=== PATIENT | female | born 2000 | race Caucasian/White ===

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

== ENCOUNTER 2021-02-24 09:32 | Observation (INO) ==
[2021-02-24] MEDS ORDERED: ALBUT/IPRATROP 3MG/0.5MG NEB 3 ML VIAL NEB ONE (11:05)
[2021-02-24] MEDS ORDERED: methylPREDNISolone 125 MG/2 ML VIAL IV STA (11:05)
--- NOTE | 2021-02-24 11:10 | Emergency Department Note ---
History of Present Illness General Chief complaint: Respiratory Problems Stated complaint: CHEST PAIN, WHEEZING, DRY COUGH Time Seen by Provider: 02/24/21 10:55 Source: patient Mode of arrival: ambulatory Limitations: no limitations History of Present Illness This patient is a 20-year-old female who has history of asthma comes in after feeling sick since Wednesday she has had a cough she was using Mucinex and ibuprofen her doctor called her and promethazine cough syrup she says she had a nasty cough with wheezing. She said no fever since Wednesday. She says she think she has pneumonia. She takes Singulair as well as Dulera and and had inhaler/nebs. She is not on any current steroids denies lower extremity pain or swelling. Denies she finished her last period yesterday. No fall or trauma. She had 2 - home Covid test and she also is a JJ vaccine in October and had Covid last year so she does not think she likely has Covid. Has been seen in the hospital for her asthma but never been hospitalized Home Medications Medication Instructions Recorded Confirmed Type inhalational spacing device #1 ea 03/28/19 12/06/20 History (POCKET CHAMBER) aluminum chloride 20 % topical 1 applic TOPICAL HS #60 ml 05/20/20 02/24/21 Rx solution (Drysol) albuterol sulfate 2.5 mg INHALATION QID PRN #15 ml 07/02/20 02/24/21 Rx nebulizers (Compact Compressor #1 ea 07/25/20 12/06/20 Rx Nebulizer) montelukast 10 mg tablet 10 mg PO DAILY #90 tab 09/30/20 02/24/21 Rx (Singulair) mometasone-formoterol HFA 100 2 puff INHALATION BID #13 g 11/22/20 02/24/21 Rx mcg-5 mcg/actuation aerosol inhaler (Dulera) famotidine 20 mg tablet (Pepcid) 20 mg PO DAILY #90 tab 12/06/20 02/24/21 Rx norgestimate 0.25 mg-ethinyl 1 tab PO DAILY #28 tab 01/22/21 02/24/21 Rx estradiol 35 mcg tablet (Sprintec (28)) albuterol sulfate 90 mcg/actuation 2 puff INH Q4H PRN 02/24/21 02/24/21 History aerosol inhaler (ProAir HFA) Allergies Allergy/AdvReac Type Severity Reaction Status Date / Time No Known Allergies Allergy Verified 02/24/21 11:49 Past Med/Surg History Medical History (Updated 02/24/21 @ 13:40 by Darrell Wright MD) Chronic gastroesophageal reflux disease WAYNE (generalized anxiety disorder) Intrinsic asthma Surgical History S/P tonsillectomy S/P tympanic tube insertion S/P wisdom tooth extraction Family History Denies family history of Ovarian cancer Prostate cancer Myocardial infarction Breast cancer Colorectal cancer Social History Smoking Status: Never smoker Hx Alcohol Use: No Hx Substance Use: No Preferred Language: Tajik Communication Ability: Effective Visual Impairment: No Limitations Hearing Ability: Normal marital status: Single Current Living Situation: Other Current Living Situation Comment: Living with roommates current occupational status: employed and student current occupation: [employer] Feels Safe at Home: Yes Childhood Exposure to Second-Hand Smoke: Yes Dental Care, Regularly: Yes Physical Activity Frequency: 1-2 Times per Week Seatbelt Use: always Sunscreen Use: No Review of Systems A total of 10 systems reviewed and were otherwise negative Physical Exam Vital Signs Vital Signs - 24 hr 02/24/21 09:37 02/24/21 11:10 02/24/21 11:20 Temperature 36.7 C Temperature Source Temporal Artery Scan Pulse Rate 117 H 103 H Pulse Rate [Left] 97 H Pulse Rate from SpO2 Sensor Pulse Rhythm Regular Pulse Rhythm [Left] Regular Pulse Strength Normal Pulse Strength [Left] Normal Respiratory Rate 20 17 26 H Respiratory Effort / Characteristics Non-Labored Spontaneous Non-Labored Respiratory Depth Normal Normal Respiratory Pattern Regular Regular Blood Pressure 159/106 H Blood Pressure [Left Arm] 144/79 H Blood Pressure Mean 123 Blood Pressure Mean [Left Arm] 100 Blood Pressure Position Sitting Blood Pressure Position [Left Arm] Lying Pulse Oximetry 93 100 95 Oxygen Delivery Method Room Air Room Air Room Air Sepsis Recent Fever Within 48 Hours No Sepsis New/Unexplained Change in Mental Status N/A Sepsis Action Taken by Nursing No Action Required 02/24/21 11:30 02/24/21 11:45 02/24/21 11:53 Temperature Temperature Source Pulse Rate 87 78 Pulse Rate [Left] 70 Pulse Rate from SpO2 Sensor 85 78 Pulse Rhythm Pulse Rhythm [Left] Pulse Strength Pulse Strength [Left] Respiratory Rate 34 H 36 H 20 Respiratory Effort / Characteristics Spontaneous Respiratory Depth Respiratory Pattern Blood Pressure 135/86 131/94 Blood Pressure [Left Arm] Blood Pressure Mean 102 106 Blood Pressure Mean [Left Arm] Blood Pressure Position Blood Pressure Position [Left Arm] Pulse Oximetry 93 97 97 Oxygen Delivery Method Room Air Room Air Room Air Sepsis Recent Fever Within 48 Hours Sepsis New/Unexplained Change in Mental Status Sepsis Action Taken by Nursing 02/24/21 12:00 02/24/21 12:15 02/24/21 12:30 Temperature Temperature Source Pulse Rate 85 88 87 Pulse Rate [Left] Pulse Rate from SpO2 Sensor 85 89 88 Pulse Rhythm Pulse Rhythm [Left] Pulse Strength Pulse Strength [Left] Respiratory Rate 26 H 20 25 H Respiratory Effort / Characteristics Respiratory Depth Respiratory Pattern Blood Pressure 142/78 H 145/72 H 104/73 Blood Pressure [Left Arm] Blood Pressure Mean 99 96 83 Blood Pressure Mean [Left Arm] Blood Pressure Position Blood Pressure Position [Left Arm] Pulse Oximetry 98 98 98 Oxygen Delivery Method Room Air Room Air Room Air Sepsis Recent Fever Within 48 Hours Sepsis New/Unexplained Change in Mental Status Sepsis Action Taken by Nursing 02/24/21 12:45 02/24/21 13:00 02/24/21 13:15 Temperature Temperature Source Pulse Rate 96 H 112 H 99 H Pulse Rate [Left] Pulse Rate from SpO2 Sensor 100 H 113 H 104 H Pulse Rhythm Pulse Rhythm [Left] Pulse Strength Pulse Strength [Left] Respiratory Rate 21 21 24 Respiratory Effort / Characteristics Respiratory Depth Respiratory Pattern Blood Pressure 127/81 141/80 H 134/75 Blood Pressure [Left Arm] Blood Pressure Mean 96 100 94 Blood Pressure Mean [Left Arm] Blood Pressure Position Blood Pressure Position [Left Arm] Pulse Oximetry 98 97 96 Oxygen Delivery Method Room Air Room Air Room Air Sepsis Recent Fever Within 48 Hours Sepsis New/Unexplained Change in Mental Status Sepsis Action Taken by Nursing General: Well developed well nourished young female who has a dry intermittent cough in no acute distress, breathing comfortably on room air. Normal speech HEENT: Normal cephalic atraumatic. Pupils are equal round and reactive to light. Extraocular movements are intact. Oropharynx is pink with moist mucous membranes. No swelling of the mouth lips or tongue. Neck: Supple with a midline trachea. No meningeal signs or stiffness, no JVD or bruits. No Stridor. Chest: She has mild increased work of breathing and diffuse wheezes bilaterally with rhonchi as well. No retractions. Heart: Regular rate and rhythm without murmurs or gallops. Abdomen: Soft nontender, nondistended without rebound guarding or rigidity. Extremities: No cyanosis clubbing or edema. No calf tenderness or assymetry Spine/Back. Non tender to palpation. No CVA tenderness Skin: Good turgor without rashes. Neurologic exam: Cranial nerves two through 12 are intact. Motor and sensation are intact and symmetrical throughout. Course Administered Medications Discontinued Medications Albuterol (Albut/Ipratrop 3mg/0.5mg Neb 3 Ml Vial) 12 ml NEB ONE ONE Stop: 02/24/21 11:06 Last Admin: 02/24/21 11:43 Dose: 12 ml Documented by: [id number] Methylprednisolone (Methylprednisolone 125 Mg/2 Ml Vial) 125 mg IV NOW STA Stop: 02/24/21 11:06 Last Admin: 02/24/21 11:23 Dose: 125 mg Documented by: [id number] Medical Decision Making Differential Diagnosis Asthma exacerbation, bronchitis, pneumonia, Covid, PE, electrolyte or metabolic abnormality Medical Records Attestation: I reviewed the patient's medical records. Home Medications Current Medication List: was personally reviewed by me Laboratory Data Attestation: I reviewed the patient's lab results. Result diagrams: 02/24/21 11:21 02/24/21 11:21 Lab Results 02/24/21 02/24/21 02/24/21 Range/Units 11:21 11:21 11:21 WBC 7.53 (4.8-10.8) K/uL RBC 4.55 (4.2-5.4) M/uL Hgb 13.9 (12.0-16.0) g/dL Hct 40.1 (37-47) % MCV 88.1 (80-100) fL MCH 30.5 (25-34) pg MCHC 34.7 (32-36) g/dL RDW Std Deviation 41.0 (36.4-46.3) fL RDW Coeff of Ruthann 12.7 (11.5-14.5) % Plt Count 243 (130-400) K/uL MPV 10.9 H (7.4-10.4) fL Immature Gran % (Auto) 0.3 % Neut % (Auto) 54.6 % Lymph % (Auto) 29.3 % Letcher % (Auto) 10.8 % Eos % (Auto) 4.5 % Baso % (Auto) 0.5 % Neut # (Auto) 4.11 (1.4-6.5) K/uL Lymph # (Auto) 2.21 (1.2-3.4) K/uL Letcher # (Auto) 0.81 H (0.11-0.59) K/uL Eos # (Auto) 0.34 (0-0.5) K/uL Baso # (Auto) 0.04 (0-0.2) K/uL Immature Gran # (Auto) 0.02 (0.00-0.02) K/uL APTT 27.6 (21.0-31.0) Seconds PTT Ratio 1.0 D-Dimer 250 (0-500) ug/L FEU Sodium 138 (136-145) mmol/L Potassium 3.5 (3.5-5.1) mmol/L Chloride 105 (98-107) mmol/L Carbon Dioxide 25 (21-32) mmol/L Anion Gap 8.0 (3-11) BUN 5 L (7-18) mg/dl Creatinine 0.85 (0.6-1.2) mg/dl Est Cr Clr Drug Dosing 89.4 ml/min Est GFR ( Amer) 113.5 ml/min Est GFR (Non-Af Amer) 97.9 ml/min BUN/Creatinine Ratio 5.9 L (10-20) Glucose 94 (70-99) mg/dl Calcium 8.4 L (8.5-10.1) mg/dl Total Bilirubin 0.4 (0.2-1) mg/dl AST 15 (15-37) U/L ALT 16 (12-78) U/L Alkaline Phosphatase 62 (45-117) U/L Troponin I < 0.015 (0-0.045) ng/ml Total Protein 8.1 (6.4-8.2) gm/dl Albumin 3.5 (3.4-5.0) gm/dl Globulin 4.6 H (2.5-4.0) gm/dl Albumin/Globulin Ratio 0.8 L (0.9-2) Lipase 55 L (73-393) U/L HCG, Qual (Negative) COVID-19 Eval Order SARS-CoV-2 (PCR) (Negative) 02/24/21 02/24/21 02/24/21 Range/Units 11:21 11:23 11:23 WBC (4.8-10.8) K/uL RBC (4.2-5.4) M/uL Hgb (12.0-16.0) g/dL Hct (37-47) % MCV (80-100) fL MCH (25-34) pg MCHC (32-36) g/dL RDW Std Deviation (36.4-46.3) fL RDW Coeff of Ruthann (11.5-14.5) % Plt Count (130-400) K/uL MPV (7.4-10.4) fL Immature Gran % (Auto) % Neut % (Auto) % Lymph % (Auto) % Letcher % (Auto) % Eos % (Auto) % Baso % (Auto) % Neut # (Auto) (1.4-6.5) K/uL Lymph # (Auto) (1.2-3.4) K/uL Letcher # (Auto) (0.11-0.59) K/uL Eos # (Auto) (0-0.5) K/uL Baso # (Auto) (0-0.2) K/uL Immature Gran # (Auto) (0.00-0.02) K/uL APTT (21.0-31.0) Seconds PTT Ratio D-Dimer (0-500) ug/L FEU Sodium (136-145) mmol/L Potassium (3.5-5.1) mmol/L Chloride (98-107) mmol/L Carbon Dioxide (21-32) mmol/L Anion Gap (3-11) BUN (7-18) mg/dl Creatinine (0.6-1.2) mg/dl Est Cr Clr Drug Dosing ml/min Est GFR ( Amer) ml/min Est GFR (Non-Af Amer) ml/min BUN/Creatinine Ratio (10-20) Glucose (70-99) mg/dl Calcium (8.5-10.1) mg/dl Total Bilirubin (0.2-1) mg/dl AST (15-37) U/L ALT (12-78) U/L Alkaline Phosphatase (45-117) U/L Troponin I (0-0.045) ng/ml Total Protein (6.4-8.2) gm/dl Albumin (3.4-5.0) gm/dl Globulin (2.5-4.0) gm/dl Albumin/Globulin Ratio (0.9-2) Lipase (73-393) U/L HCG, Qual Negative (Negative) COVID-19 Eval Order Covid19 at [facility] SARS-CoV-2 (PCR) NEGATIVE (Negative) Imaging Data Attestation: I personally reviewed and interpreted this imaging study as follows: My Impression: Chest x-ray No acute infiltrate, failure, pneumothorax seen. Radiologist's Impression: Chest X-Ray 02/24/21 11:05 XR chest 1V portable HISTORY: Atypical Chest Pain COMPARISON: Chest 08/22/2020. FINDINGS: The lungs are clear. Cardiac silhouette is normal in size. No pleural effusions. No pneumothorax. IMPRESSION: No acute process. ACT 112: Negative or not required by law. Electronically signed by: Nirav Sanders M.D. 02/24/2021 11:52 AM ECG Data Attestation: I personally reviewed and interpreted this ECG as follows: Indication: + SOB/dyspnea Rate (beats per minute): 88 Rhythm: + normal sinus ECG Intervals/blocks: + Normal QRS, + Normal QT and + Normal PA ECG [place]: + Normal ECG ST segments: + Normal ST segments ECG Findings: no PACs or no PVCs Comparison ECG Date: no prior available MDM Narrative This patient comes in as described above. She was placed on a cardiac technologist in room C 10. She is a cough and shortness of breath. She is an asthmatic and she sounds very wheezy and junky. Her O2 sat is 93%. She does not appear to be in significant distress besides coughing. IV access was established. She was given Solu-Medrol 125 mg IV. she was given a continuous albuterol Atrovent neb. She was Covid tested here as well blood work was obtained as well as an EKG she was reassessed frequently. Her chest x-ray was clear does not suggest congestive heart failure pneumonia or pneumothorax. Covid testing here was negative and I think Covid's unlikely given the that she has had 2 other negative test as well as the vaccine and a history of Covid. She has no serum white count or fever to suggest sepsis. Her D-dimer is within normal limits and a low pretest probability study makes PE highly unlikely. EKG does not suggest acute coronary syndrome or arrhythmia. Troponin is negative. After the hour- long neb she says she still does not feel well I listen to her lungs she still sounds very wheezy although she is not hypoxemic I do think she needs to be admitted/observe for further treatment and evaluation. Have consulted Dr. Alfonso to see her in ER for these measures. Continuous cardiac monitoring: Due to her shortness of breath, an order was placed in EMR for continuous cardiac monitoring. Upon my interpretation she was noted to be in normal sinus rhythm with a rate of 99 Impression & Plan Asthma exacerbation, SOB (shortness of breath), Lab test negative for COVID-19 virus, Bronchitis, Not currently Discharge Plan Visit Data Chief Complaint: Respiratory Problems Stated Complaint: CHEST PAIN, WHEEZING, DRY COUGH ED Provider: Darrell Wright Discharge Problem: Asthma exacerbation, SOB (shortness of breath), Lab test negative for COVID-19 virus, Bronchitis, Not currently Discharge Instructions Activity Restrictions/Additional Instructions: Rest Drink plenty of fluids Return if: Worsening of symptoms, increasing shortness of breath, fever chills, any new problems or concerns Use prednisone 50 mg a day for the next 4 days Continue inhalers/nebulizer Use azithromycin Z-Esteban as directedantibiotic Forms Stand Alone Forms: My [facility] [employer] Prescriptions Prescriptions: No Action norgestimate-ethinyl estradiol [Sprintec (28)] 0.25-35 mg-mcg tablet 1 tab PO DAILY Qty: 28 RF: 5 aluminum chloride [Drysol] 20 % solution 1 applic topical HS Qty: 60 RF: 0 Dulera 100-5 mcg/actuation HFA aerosol inhaler 2 puff inhalation BID Qty: 13 RF: 5 (DME) Compact Compressor Nebulizer Misc See Dose Instructions .ROUTE .MEDSUPPLY Qty: 1 RF: 0 montelukast [Singulair] 10 mg tablet 10 mg PO DAILY Qty: 90 RF: 3 (DME) POCKET CHAMBER spacer See Dose Instructions .ROUTE .MEDSUPPLY Qty: 1 RF: 0 albuterol sulfate 2.5 mg /3 mL (0.083 %) solution for nebulization 2.5 mg inhalation QID PRN (Reason: shortness of breath or wheezing) Qty: 15 RF: 1 famotidine [Pepcid] 20 mg tablet 20 mg PO DAILY Qty: 90 RF: 3 albuterol sulfate [ProAir HFA] 90 mcg/actuation HFA aerosol inhaler 2 puff INH Q4H PRN (Reason: Shortness Of Breath) RF: 0 Referrals Referrals: Corwin Mancera III, CRNP [Primary Care Provider] -
[2021-02-24 11:46] LABS: Basophils # (auto) 0.04 K/uL (0-0.2); Basophils % (auto) 0.5 %; Eosinophils # (auto) 0.34 K/uL (0-0.5); Eosinophils % (auto) 4.5 %; Hematocrit (blood only) 40.1 % (37-47); Hemoglobin 13.9 g/dL (12.0-16.0); Immature Granulocytes # (auto) 0.02 K/uL (0.00-0.02); Immature Granulocytes % (auto) 0.3 %; Lymphocytes # (auto) 2.21 K/uL (1.2-3.4); Lymphocytes % (auto) 29.3 %; Mean Corpuscular Hemoglobin 30.5 pg (25-34); Mean Corpuscular Hgb Conc 34.7 g/dL (32-36); Mean Corpuscular Volume 88.1 fL (80-100); Mean Platelet Volume 10.9 fL (7.4-10.4); Monocytes # (auto) 0.81 K/uL (0.11-0.59); Monocytes % (auto) 10.8 %; Neutrophils # (auto) 4.11 K/uL (1.4-6.5); Neutrophils % (auto) 54.6 %; Platelet Count 243 K/uL (130-400); RDW Coefficient of Variation 12.7 % (11.5-14.5); Red Blood Count 4.55 M/uL (4.2-5.4); White Blood Count 7.53 K/uL (4.8-10.8)
--- NOTE | 2021-02-24 11:54 | XRay Report ---
XR chest 1V portable HISTORY: Atypical Chest Pain COMPARISON: Chest 08/22/2020. FINDINGS: The lungs are clear. Cardiac silhouette is normal in size. No pleural effusions. No pneumot horax. IMPRESSION: No acute process. ACT 112: Negative or not required by law. Electronically signed by: Nirav Sanders M.D. 02/24/2021 11:52 AM
[2021-02-24 11:58] LABS: D Dimer 250 ug/L FEU (0-500); Partial Thromboplastin Time 27.6 Seconds (21.0-31.0)
[2021-02-24 12:03] LABS: Alanine Aminotransferase 16 U/L (12-78); Albumin Level 3.5 gm/dl (3.4-5.0); Aspartate Aminotransferase 15 U/L (15-37); BUN Creatinine Ratio 5.9 (10-20); Blood Urea Nitrogen 5 mg/dl (7-18); Calcium 8.4 mg/dl (8.5-10.1); Carbon Dioxide 25 mmol/L (21-32); Chloride 105 mmol/L (98-107); Creatinine Clr Calc Pharmacy 89.4 ml/min; Est GFR (African American) 113.5 ml/min; Est GFR (Non-African American) 97.9 ml/min; Glucose 94 mg/dl (70-99); Lipase 55 U/L (73-393); Potassium 3.5 mmol/L (3.5-5.1); Sodium 138 mmol/L (136-145)
[2021-02-24 12:08] LABS: Albumin Globulin Ratio 0.8 (0.9-2); Alkaline Phosphatase 62 U/L (45-117); Bilirubin,Total 0.4 mg/dl (0.2-1); Globulin 4.6 gm/dl (2.5-4.0); Total Protein 8.1 gm/dl (6.4-8.2); Troponin I < 0.015 ng/ml (0-0.045)
[2021-02-24 12:37] LABS: Pregnancy Test, Serum Negative (Negative)
--- NOTE | 2021-02-24 14:38 | History & Physical Report ---
Date of Service February 24, 2021 Assessment & Plan (1) Asthma exacerbation: Plan: Placed in monitored observation Continue every 4 albuterol neb treatments as needed Patient was given a loading dose of Solu-Medrol, will continue at 40 mg every 12 hours. Hopefully patient can tolerate a rapid wean and plan to change manager to oral prednisone the next 24 hours I will hold antibiotics for now We will continue other medications as per outpatient including Singulair Can hold Dulera for now, should restart at discharge History of Present Illness Chief Complaint: Wheeze Primary Care Provider: Corwin Mancera, SURJIT, BRITT This is a 20-year-old female with past medical history of asthma presents today complaining of wheezing. Patient is pleasant good historian. Patient states that over the past few days she has had worsening shortness of breath along with wheezing. This is typical of her asthma symptoms and she t ypically does well with a home nebulizer. However the symptoms worsen. She did call her family physician and was given promethazine which did not help. She came to the emergency room had a long nebulizer which she felt was somewhat more effective. Patient has never had to rule be admitted for asthma exacerbation in the past. At time of evaluation she did appear to be comfortable although had a pronounced audible wheeze. She was on room air and was in no acute distress. Allergies Allergy/AdvReac Type Severity Reaction Status Date / Time No Known Allergies Allergy Verified 02/24/21 11:49 Home Medications Medication Instructions Recorded Confirmed Type inhalational spacing device #1 ea 03/28/19 12/06/20 History (POCKET CHAMBER) aluminum chloride 20 % topical 1 applic TOPICAL HS #60 ml 05/20/20 02/24/21 Rx solution (Drysol) albuterol sulfate 2.5 mg INHALATION QID PRN #15 ml 07/02/20 02/24/21 Rx nebulizers (Compact Compressor #1 ea 07/25/20 12/06/20 Rx Nebulizer) montelukast 10 mg tablet 10 mg PO DAILY #90 tab 09/30/20 02/24/21 Rx (Singulair) mometasone-formoterol HFA 100 2 puff INHALATION BID #13 g 11/22/20 02/24/21 Rx mcg-5 mcg/actuation aerosol inhaler (Dulera) famotidine 20 mg tablet (Pepcid) 20 mg PO DAILY #90 tab 12/06/20 02/24/21 Rx norgestimate 0.25 mg-ethinyl 1 tab PO DAILY #28 tab 01/22/21 02/24/21 Rx estradiol 35 mcg tablet (Sprintec (28)) albuterol sulfate 90 mcg/actuation 2 puff INH Q4H PRN 02/24/21 02/24/21 History aerosol inhaler (ProAir HFA) Past Med/Surg History Medical History Chronic gastroesophageal reflux disease WAYNE (generalized anxiety disorder) Intrinsic asthma Surgical History S/P tonsillectomy S/P tympanic tube insertion S/P wisdom tooth extraction Family History Denies family history of Ovarian cancer Prostate cancer Myocardial infarction Breast cancer Colorectal cancer Social History Smoking Status: Never smoker Hx Alcohol Use: No Hx Substance Use: No Preferred Language: Greek Communication Ability: Effective Visual Impairment: No Limitations Hearing Ability: Normal marital status: Single Current Living Situation: Other Current Living Situation Comment: Living with roommates current occupational status: employed and student current occupation: [employer] Feels Safe at Home: Yes Childhood Exposure to Second-Hand Smoke: Yes Dental Care, Regularly: Yes Physical Activity Frequency: 1-2 Times per Week Seatbelt Use: always Sunscreen Use: No Review of Systems Constitutional: no fever, no chills, no weakness, no weight loss and no weight gain Eyes: as per Subjective / HPI Respiratory: + cough, + dyspnea, + dyspnea on exertion and + wheezing; no chest congestion and no sputum production Cardiovascular: no chest pain, no orthopnea, no palpitations, no lightheadedness and no edema Gastrointestinal: no abdominal pain, no nausea, no vomiting, no constipation and no diarrhea/loose stools Genitourinary: no dysuria, no difficulty urinating, no urinary frequency, no urinary hesitancy, no urinary urgency and no flank pain Musculoskeletal: no back pain, no neck pain, no joint pain, no stiffness and no myalgia Integumentary: no rash Neurologic: no gait abnormality, no unsteadiness, no falls and no generalized weakness Physical Exam Constitutional: cooperative; no acute distress Neck: trachea midline, no thyromegaly Respiratory: normal respiratory effort Auscultation: + wheezes and + bronchial breath sounds; no crackles, no rales and no rhonchi Cardiovascular: Rate/Rhythm: regular rate and regular rhythm Heart Sounds: normal S1, normal S2 and + murmur Gastrointestinal (Abdomen): Inspection/Auscultation: abdomen normal to inspection Percussion/Palpation: abdomen soft; abdomen nontender, no guarding, abdomen not rigid and no hepatosplenomegaly Skin: no rashes, warm and dry Results & Data Results & Data ([facility]) Vital Signs (Past 12 Hours) Vital Signs Temp Pulse Pulse Resp BP BP Pulse Ox 02/24/21 13:15 99 H 24 134/75 96 02/24/21 13:00 112 H 21 141/80 H 97 02/24/21 12:45 96 H 21 127/81 98 02/24/21 12:30 87 25 H 104/73 98 02/24/21 12:15 88 20 145/72 H 98 02/24/21 12:00 85 26 H 142/78 H 98 02/24/21 11:53 70 20 97 02/24/21 11:45 78 36 H 131/94 97 02/24/21 11:30 87 34 H 135/86 93 02/24/21 11:20 103 H 26 H 95 02/24/21 11:10 97 H 17 144/79 H 100 02/24/21 09:37 36.7 C 117 H 20 159/106 H 93 Laboratory Results Laboratory Results WBC 7.53 K/uL (4.8-10.8) 02/24/21 11:21 RBC 4.55 M/uL (4.2-5.4) 02/24/21 11:21 Hgb 13.9 g/dL (12.0-16.0) 02/24/21 11:21 Hct 40.1 % (37-47) 02/24/21 11:21 MCV 88.1 fL (80-100) 02/24/21 11:21 MCH 30.5 pg (25-34) 02/24/21 11:21 MCHC 34.7 g/dL (32-36) 02/24/21 11: RDW Std Deviation 41.0 fL (36.4-46.3) 02/24/21 11: RDW Coeff of Ruthann 12.7 % (11.5-14.5) 02/24/21 11:21 Plt Count 243 K/uL (130-400) 02/24/21 11:21 MPV 10.9 fL (7.4-10.4) H 02/24/21 11:21 Immature Gran % (Auto) 0.3 % 02/24/21 11:21 Neut % (Auto) 54.6 % 02/24/21 11:21 Lymph % (Auto) 29.3 % 02/24/21 11:21 [place] % (Auto) 10.8 % 02/24/21 11:21 Eos % (Auto) 4.5 % 02/24/21 11:21 Baso % (Auto) 0.5 % 02/24/21 11:21 Neut # (Auto) 4.11 K/uL (1.4-6.5) 02/24/21 11: Lymph # (Auto) 2.21 K/uL (1.2-3.4) 02/24/21 11:21 [place] # (Auto) 0.81 K/uL (0.11-0.59) H 02/24/21 11:21 Eos # (Auto) 0.34 K/uL (0-0.5) 02/24/21 11:21 Baso # (Auto) 0.04 K/uL (0-0.2) 02/24/21 11: Immature Gran # (Auto) 0.02 K/uL (0.00-0.02) 02/24/21 11:21 APTT 27.6 Seconds (21.0-31.0) 02/24/21 11: PTT Ratio 1.0 02/24/21 11:21 D-Dimer 250 ug/L FEU (0-500) 02/24/21 11:21 Sodium 138 mmol/L (136-145) 02/24/21 11:21 Potassium 3.5 mmol/L (3.5-5.1) 02/24/21 11:21 Chloride 105 mmol/L (98-107) 02/24/21 11:21 Carbon Dioxide 25 mmol/L (21-32) 02/24/21 11:21 Anion Gap 8.0 (3-11) 02/24/21 11:21 BUN 5 mg/dl (7-18) L 02/24/21 11:21 Creatinine 0.85 mg/dl (0.6-1.2) 02/24/21 11:21 Est Cr Clr Drug Dosing 89.4 ml/min 02/24/21 11:21 Est GFR ( Amer) 113.5 ml/min 02/24/21 11:21 Est GFR (Non-Af Amer) 97.9 ml/min 02/24/21 11:21 BUN/Creatinine Ratio 5.9 (10-20) L 02/24/21 11:21 Glucose 94 mg/dl (70-99) 02/24/21 11:21 Calcium 8.4 mg/dl (8.5-10.1) L 02/24/21 11:21 Total Bilirubin 0.4 mg/dl (0.2-1) 02/24/21 11:21 AST 15 U/L (15-37) 02/24/21 11:21 ALT 16 U/L (12-78) 02/24/21 11:21 Alkaline Phosphatase 62 U/L (45-117) 02/24/21 11:21 Troponin I < 0.015 ng/ml (0-0.045) 02/24/21 11:21 Total Protein 8.1 gm/dl (6.4-8.2) 02/24/21 11:21 Albumin 3.5 gm/dl (3.4-5.0) 02/24/21 11:21 Globulin 4.6 gm/dl (2.5-4.0) H 02/24/21 11:21 Albumin/Globulin Ratio 0.8 (0.9-2) L 02/24/21 11:21 Lipase 55 U/L (73-393) L 02/24/21 11:21 HCG, Qual Negative (Negative) 02/24/21 11:21 COVID-19 Eval Order Covid19 at [facility] 02/24/21 11:23 SARS-CoV-2 (PCR) NEGATIVE (Negative) 02/24/21 11:23 Impressions Chest X-Ray 02/24/21 11:05 XR chest 1V portable HISTORY: Atypical Chest Pain COMPARISON: Chest 08/22/2020. FINDINGS: The lungs are clear. Cardiac silhouette is normal in size. No pleural effusions. No pneumothorax. IMPRESSION: No acute process. ACT 112: Negative or not required by law. Electronically signed by: Nirav Sanders M.D. 02/24/2021 11:52 AM PG Care Time/CCT Total # of Minutes Spent Total Time Spent with Patient: Total time spent is greater than 50% in coordination of care (as documented) at patient's floor/unit and/or counseling patient: Coding Level of Care Code INT OBSERVATION CARE 70M LVL 3 Diagnoses Asthma exacerbation J45.901 Asthma persistence: unspecified Asthma severity: moderate (1) Asthma exacerbation Asthma persistence: unspecified Asthma severity: moderate Qualified Code(s): J45.901 - Unspecified asthma with (acute) exacerbation
[2021-02-24] MEDS ORDERED: ONDANSETRON INJ 2 MG/ML 2 ML VIAL IV PRN (15:48)
--- NOTE | 2021-02-24 16:04 | Electrocardiogram Report ---
Test Reason : Blood Pressure : / mmHG Vent. Rate : 088 BPM Atrial Rate : 088 BPM P-R Int : 132 ms QRS Dur : 070 ms QT Int : 382 ms P-R-T Axes : 067 069 037 degrees QTc Int : 462 ms Poor data quality, interpretation may be adversely affected Normal sinus rhythm with sinus arrhythmia Normal ECG No previous ECGs available Confirmed by John Laguna ([id number]) on 02/24/2021 4:03:41 PM Referred By: Corwin Mancera Confirmed By:John Laguna
[2021-02-24] MEDS: ACETAMINOPHEN 325 MG TAB PO PRN (19:29)
[2021-02-24] MEDS: methylPREDNISolone 40 MG in SYRINGE 0 ML IV SCH (22:36)
[2021-02-24] MEDS: ALBUTEROL 0.083% NEBU SOLN 3 ML VIAL INH PRN (22:41)
[2021-02-25] MEDS: ACETAMINOPHEN 325 MG TAB PO PRN ×2 (04:51→17:45)
[2021-02-25] MEDS: ALBUTEROL 0.083% NEBU SOLN 3 ML VIAL INH PRN ×2 (04:56→07:44)
[2021-02-25 07:43] LABS: Basophils # (auto) 0.02 K/uL (0-0.2); Basophils % (auto) 0.2 %; Hematocrit (blood only) 39.2 % (37-47); Hemoglobin 13.5 g/dL (12.0-16.0); Immature Granulocytes # (auto) 0.02 K/uL (0.00-0.02); Immature Granulocytes % (auto) 0.2 %; Lymphocytes # (auto) 1.34 K/uL (1.2-3.4); Lymphocytes % (auto) 13.6 %; Mean Corpuscular Hemoglobin 30.3 pg (25-34); Mean Corpuscular Hgb Conc 34.4 g/dL (32-36); Mean Corpuscular Volume 88.1 fL (80-100); Mean Platelet Volume 11.2 fL (7.4-10.4); Monocytes # (auto) 0.99 K/uL (0.11-0.59); Monocytes % (auto) 10.1 %; Neutrophils # (auto) 7.46 K/uL (1.4-6.5); Neutrophils % (auto) 75.9 %; Platelet Count 264 K/uL (130-400); RDW Coefficient of Variation 12.7 % (11.5-14.5); RDW Standard Deviation 40.7 fL (36.4-46.3); Red Blood Count 4.45 M/uL (4.2-5.4); White Blood Count 9.83 K/uL (4.8-10.8)
[2021-02-25 08:06] LABS: BUN Creatinine Ratio 9.8 (10-20); Calcium 9.1 mg/dl (8.5-10.1); Creatinine Clr Calc Pharmacy 102.5 ml/min; Est GFR (African American) 132.1 ml/min; Est GFR (Non-African American) 113.9 ml/min; Magnesium 2.3 mg/dl (1.8-2.4); Potassium 3.8 mmol/L (3.5-5.1)
[2021-02-25] MEDS: MONTELUKAST SODIUM 10 MG TABLET PO SCH (08:36)
[2021-02-25] MEDS: FAMOTIDINE 20 MG TAB PO SCH (08:36)
[2021-02-25] MEDS: ALBUTEROL 0.083% NEBU SOLN 3 ML VIAL INH SCH ×4 (11:02→22:29)
[2021-02-25] MEDS: methylPREDNISolone 40 MG in SYRINGE 0 ML IV SCH ×2 (11:39→22:51)
--- NOTE | 2021-02-25 18:43 | Hospitalist Progress Note ---
Date of Service February 25, 2021 Assessment & Plan (1) Asthma exacerbation: Plan: Most likely viral bronchitis type etiology for exacerbation -Appears to be improving, but still fairly symptomatic -Continue current care with nebs [id number] and IV steroids -Continue supportive care and serial exams -Hopefully home soon Admission and Anticipated Discharge Date Admission Date: February 24, 2021 Subjective Seen twice today. Breathing better than yesterday, but still not well. A decent amount of dyspnea when she walks. 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 Ongoing cough and dyspnea. Definitely better than yesterday though. Review of Systems Review of Systems: All systems reviewed & are unremarkable except as noted in HPI & below Physical Exam Physical Exam: In general she is awake and alert fatigued but no distress. HEENT normocephalic atraumatic mucous membranes moist. Lungs show overall good air entry, but very coarse breath sounds throughout diffusely, no wheezing no accessory muscle use. Skin shows no rashes no pallor or icterus. Neuro without focal deficits. Results & Data Results & Data ([facility]) Vital Signs (Past 12 Hours) Vital Signs Temp Pulse Resp BP Pulse Ox 02/25/21 18:16 20 97 02/25/21 16:32 97.7 F 80 18 118/72 94 02/25/21 14:56 70 18 99 02/25/21 11:03 70 20 99 02/25/21 08:03 98.1 F 69 18 122/73 99 02/25/21 07:46 69 20 99 PG Care Time/CCT Total # of Minutes Spent Total Time Spent with Patient: Total time spent is greater than 50% in coordination of care (as documented) at patient's floor/unit and/or counseling patient: Coding Level of Care Code 91964 Subseq Obs Care Lvl 3 Diagnoses Asthma exacerbation J45.901 Asthma persistence: unspecified Asthma severity: moderate (1) Asthma exacerbation Asthma persistence: unspecified Asthma severity: moderate Qualified Code(s): J45.901 - Unspecified asthma with (acute) exacerbation
[2021-02-26] MEDS: ALBUTEROL 0.083% NEBU SOLN 3 ML VIAL INH SCH ×3 (04:03→10:55)
[2021-02-26] MEDS: MONTELUKAST SODIUM 10 MG TABLET PO SCH (09:07)
[2021-02-26] MEDS: FAMOTIDINE 20 MG TAB PO SCH (09:08)
[2021-02-26] MEDS: methylPREDNISolone 40 MG in SYRINGE 0 ML IV SCH (10:51)
[2021-02-26] MEDS ORDERED: AZITHROMYCIN 250 MG TAB PO ONE (12:30)
--- NOTE | 2021-02-26 19:02 | Discharge Summary ---
Date of Service February 26, 2021 Admission HPI Per Admitting Provider This is a 20-year-old female with past medical history of asthma presents today complaining of wheezing. Patient is pleasant good historian. Patient states that over the past few days she has had worsening shortness of breath along with wheezing. This is typical of her asthma symptoms and she typically does well with a home nebulizer. However the symptoms worsen. She did call her family physician and was given promethazine which did not help. She came to the emergency room had a long nebulizer which she felt was somewhat more effective. Patient has never had to rule be admitted for asthma exacerbation in the past. At time of evaluation she did appear to be comfortable although had a pronounced audible wheeze. She was on room air and was in no acute distress. Principal Diagnosis Asthma exacerbation Discharge Exam In general she is awake and alert pleasant no distress. HEENT normocephalic atraumatic mucous membranes moist. Lungs show coarse breath sounds throughout with rather mucousy rhonchi, but much better air entry than yesterday, no accessory muscle use no conversational dyspnea, occasional dry cough. Neuro shows no focal deficits, skin without rashes, pallor, icterus. Discharge Data Allergies Allergy/AdvReac Type Severity Reaction Status Date / Time No Known Allergies Allergy Verified 02/24/21 11:49 Consultations 02/24/21 13:13 ED Decision to Admit Stat Hospital Course (1) Asthma exacerbation: Most likely bronchitis type etiology for exacerbation -Appears to be improving, but still fairly symptomaticsafe/stable for home, but will add azithromycin to cover for atypicals given this being her worst exacerbation it seems she is ever had, and a bit slow to turn around. Chest x- ray did not show pneumonia, and her lung exam shows symmetric findings. -Zithromax, prednisone taper, continue Dulera, albuterol as needed -Would refrain from work for at least the next week or so given that she is exposed to the public quite a bit. Total Time Total Time Spent Total Time Spent (In Minutes): <30 Discharge Plan Discharge Items Patient Disposition: Home - Self-Care Reason For Visit: ASTHMA EXAC Discharge Diagnosis: asthma exacerbation Activity: Resume your previous activity Lifting: None Non-emergency contact: Primary Care Provider and [employer]age [employer] Investigator Call non-emergency contact if: you have any medication questions, your symptoms worsen and you have a fever Follow-up/Referrals: Corwin Mancera III, CRNP [Primary Care Provider] - 03/06/21 9:20 am Diet: Regular Addtl Attending Provider Instructions: asthma exacerbation -as we discussed, most likely the reason for your asthma flare was an infectious bronchitis-type mechanism. most likely this came about because of all of the exposure of people at work, especially because we'll frequently see an uptick in respiratory infections when everyone first comes back to campus, and brings all their different viruses/etc with them -while most of these respiratory infections are viral, since yours asthma flare was definitely worse than you've ever had, and was a bit stubborn to get to turn around, we've added zithromax (azithromycin) to cover for what are called atypical bacteria (think "bacterial bronchitis) (you'll just need to take a 250mg pill for the next four days - starting tomorrow - 02/27) -fortunately it does appear that you're turning the corner - and generally speaking, once someone with an asthma flare starts to get better, they rarely backslide (unless they have a new exposure, last picker a new infection, etc) -the main part of getting this "the rest of the way better" medically will be steroids, and overall will just be time to heal --steroids: we'll do a fairly long prednisone taper - the idea of the taper being that we'll want the anti-inflammatory effect of the steroids to "outlast" the inflammation from the infection -- so we'll have you on 60mg for 2 days, then 50mg for 2 days, then 40mg for 2 days, then 30mg for 2 days, then 20mg for 2 days, then 10mg for 2 days. -----the typical side effects of being on steroids for the short term are feeling hungry or hyper. because of this, i'd definitely recommend taking the dosing earlier in the day (like taking with breakfast) so that you're not feeling restless and up all night! -----as we get down to the lower end of the dosing - around 20mg and definitely when you're down to 10mg - pay attention to how you're feeling. at that point we'll be at relatively low dosing as it relates to lung inflammation -- so we'll want you to call right away if you noticed at the lower dosing that the wheezing was getting worse, the tight cough was coming back, etc so we could get you checked out. -inhalers: -continue your dulera twice a day like you've been doing -take the albuterol every four hours for the short term future (nebulizer or inhaler work the same as long as you have a spacer for the inhaler) -- as you're feeling better, just start to space it out slowly -- in a few days if you get to where you're not feeling too bad at the 4 hour laith, then it's OK to push things to 5-6 hours and see how you feel. if you start to feel tight or wheezy as you're trying to space things out, just take the albuterol right away then. ---to clarify above: when you take albuterol, the nebulizer makes it easier to get it in, but if you're able to get it into your lungs from the inhaler it works just as well for most people. the "trick" is using something like a spacer so less of the medicine gets on your tongue and roof of your mouth. a spacer is basically just a plastic tube that lets the albuterol form more of a mist before it gets to your mouth. i sent an Rx for one, but if it's ridiculously expensive, look on [employer]/etc - often people are able to get things cheaper without an Rx when it comes to spacers! -over the next few days to few weeks (depending on how long it takes for you to feel better) you will hopefully see that you can start to space out the albuterol more and more - ideally back to where you only have to use it on an "as-needed" basis again -definitely pre-emptively take the albuterol before doing anything active until you're back to normal as we discussed, the interplay between asthma and anxiety is really common and really understandable - when you feel like you can't get enough air, it's natural to feel anxious about it. the tricky part is that anxiety, all by itself, can also cause people to feel short of breath in a way that can be hard to distinguish from the asthma. as we discussed, i've seen people come in essentially feeling like they need prednisone to treat a panic attack. remember: this has not been your normal with your asthma before, and it's not likely to be a "new normal" you have to deal with for the future. it's more of a bad acute event, brought on by a lower respiratory infection (bronchitis) that flared up the asthma worse than you've been flared before. you'll get better! Pending Studies at Discharge: No Stand-Alone Forms: My [facility], Work/School Release, Smoking Cessation Medications and DC Order Prescriptions: New prednisone 10 mg tablet 10 mg PO UD Qty: 42 RF: 0 azithromycin 250 mg tablet 250 mg PO DAILY 4 Days Qty: 4 RF: 0 (DME) Aerochamber MV Spacer See Rx Instructions .Route Qty: 1 RF: 0 Continued norgestimate-ethinyl estradiol [Sprintec (28)] 0.25-35 mg-mcg tablet 1 tab PO DAILY Qty: 28 RF: 5 aluminum chloride [Drysol] 20 % solution 1 applic topical HS Qty: 60 RF: 0 Dulera 100-5 mcg/actuation HFA aerosol inhaler 2 puff inhalation BID Qty: 13 RF: 5 (DME) Compact Compressor Nebulizer Misc See Dose Instructions .ROUTE .MEDSUPPLY Qty: 1 RF: 0 montelukast [Singulair] 10 mg tablet 10 mg PO DAILY Qty: 90 RF: 3 (DME) POCKET CHAMBER spacer See Dose Instructions .ROUTE .MEDSUPPLY Qty: 1 RF: 0 albuterol sulfate 2.5 mg /3 mL (0.083 %) solution for nebulization 2.5 mg inhalation QID PRN (Reason: shortness of breath or wheezing) Qty: 15 RF: 1 famotidine [Pepcid] 20 mg tablet 20 mg PO DAILY Qty: 90 RF: 3 albuterol sulfate [ProAir HFA] 90 mcg/actuation HFA aerosol inhaler 2 puff INH Q4H PRN (Reason: Shortness Of Breath) RF: 0 Discharge Orders: Discharge Order (Routine); Ordered 02/26/21 Ordered By: Emmett Malik Admission Data Admit Date/Time: 02/24/21 14:37 Attending Provider: Emmett Malik Admit Provider: Ruben Alfonso Primary Care Provider: Griel,Corwin C. III Other Providers: Ruben Alfonso Other Interventions: Discharge Summary Assessment (RN) Last Done: 02/26/21 10:53 Coding Level of Care Code 65276 OBS Care - Discharge Diagnoses Asthma exacerbation J45.901 Asthma persistence: unspecified Asthma severity: moderate
== END 2021-02-26 14:16 | disposition home or self-care (01) ==
LOC: ED 09:32 → 3W 09:32 → SUATTDRO 14:37 → 3W 15:20
DX: K21.9 Gastro-esophageal reflux disease without esophagitis; Z79.51 Long term (current) use of inhaled steroids; J45.901 Unspecified asthma with (acute) exacerbation; Z79.3 Long term (current) use of hormonal contraceptives; Z79.899 Other long term (current) drug therapy